=== PATIENT | male | born 2000 | race African-American/Black ===

== ENCOUNTER 2022-06-17 08:00 | Outpatient (CLI) | payer OTHER ==
[2022-06-17 23:42] LABS: CHLAMYDIA TRACHOMATIS DNA NEGATIVE (NEGATIVE); NEISSERIA GONORRHOEAE DNA NEGATIVE (NEGATIVE)
[2022-06-19 07:10] LABS: RPR Non Reactive (Non Reactive)
[2022-06-19 10:09] LABS: HCV AB <0.1 s/co ratio (0.0-0.9)
[2022-06-20 00:07] LABS: HIV SCREEN 4TH GENERATION Non Reactive (Non Reactive)
== END 2022-06-17 23:59 | disposition home or self-care (01) ==
LOC: LAB.N 08:00
PROVIDERS: ATTEND Registered Nurse
DX: Z20.2 Contact with and (suspected) exposure to infections with a predominantly sexual mode of transmission (principal)
CPT/HCPCS: 36415; 86592; 86803; 87389; 87491; 87591; 87661

== ENCOUNTER 2022-08-29 08:00 | Outpatient (CLI) | payer OTHER ==
[2022-08-29 23:24] LABS: CHLAMYDIA TRACHOMATIS DNA NEGATIVE (NEGATIVE); NEISSERIA GONORRHOEAE DNA NEGATIVE (NEGATIVE)
[2022-08-30 07:10] LABS: HCV AB <0.1 s/co ratio (0.0-0.9)
[2022-08-30 08:10] LABS: RPR Non Reactive (Non Reactive)
[2022-08-31 00:08] LABS: HIV SCREEN 4TH GENERATION Non Reactive (Non Reactive)
[2022-08-31 07:09] LABS: HSV 1 IGG TYPE SPEC <0.91 index (0.00-0.90); HSV 2 IGG TYPE SPEC <0.91 index (0.00-0.90)
== END 2022-08-29 23:59 | disposition home or self-care (01) ==
LOC: LAB.N 08:00
PROVIDERS: ATTEND Physician Assistant
DX: Z20.2 Contact with and (suspected) exposure to infections with a predominantly sexual mode of transmission (principal)
CPT/HCPCS: 36415; 86592; 86695; 86696; 86803; 87389; 87491; 87591; 87661

== ENCOUNTER 2023-02-12 13:00 | Outpatient (CLI) | payer OTHER ==
--- NOTE | 2023-02-12 17:21 | XRAY Report ---
PROCEDURE: Lumbar Spine Complete INDICATIONS: LOW BACK PAIN ACUTE, EXTENSION INJURY. TECHNIQUE: 5 views of the lumbar spine were acquired. COMPARISON: None. FINDINGS: Bones: 5 [id number] vertebrae are present. There is normal bony alignment. No vertebral body compression fractures. No suspicious bony lesions. Oblique views shows no pars defects. Soft tissues: Overlying bowel gas pattern is normal. No suspicious soft tissue calcifications. IMPRESSION: No acute compression fracture or spondylolisthesis. No pars defects. Reviewed by: Missael Aguilar MD on 02/12/2023 5:20 PM PDT Approved by: Missael Aguilar MD on 02/12/2023 5:20 PM PDT Station ID: [id number]
== END 2023-02-12 13:15 | disposition home or self-care (01) ==
LOC: DI.N 13:00
PROVIDERS: ATTEND Family Medicine
DX: M54.50 Low back pain, unspecified (principal)